=== PATIENT | female | born 1970 | race Caucasian/White ===

== ENCOUNTER 2017-12-03 10:44 | Outpatient (CLI) | payer OTHER | END 2017-12-03 10:45 | disposition home or self-care (01) | LOC: BICRAD 10:44 | PROVIDERS: ATTEND Family Medicine | DX: M23.91 Unspecified internal derangement of right knee (principal); M17.11 Unilateral primary osteoarthritis, right knee; M25.461 Effusion, right knee ==

== ENCOUNTER 2017-12-17 13:19 | Outpatient (CLI) | payer OTHER ==
--- NOTE | 2017-12-17 16:03 | MRI ---
MRI OF THE RIGHT KNEE WITHOUT CONTRAST: INDICATION: Internal derangement of the right knee. COMPARISON: None. 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 There are full-thi ckness chondral fissures involving the median patellar ridge as well as the central femoral trochlea with subchondral edema. There is diffuse chondral thinning involving the medial femoral tibial joint compartment. There is a large focal area of near full-thickness delamination involving the medial f emoral condyle measuring 1.7 x 1.3 cm in AP and lateral dimensions, respectively. There is a small h orizontally oriented T2 hyperintensity involving the anterior junction and anterior body of the media l meniscus suspicious for medial meniscal tear. The lateral meniscus is intact. The ACL, PCL, MCL, and LCLC are intact. There is some mild edema ov erlying the MCL which is nonspecific. LCLC, PCL, ACL, and extensor mechanism are intact. IMPRESSION: 1. 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 2. Medial meniscal tear. Lateral menisci appear intact. 3. Nonspecific edema overlying the medial collateral ligament can be related to a prior grade I medi al collateral ligament sprain. POS: [facility]
== END 2017-12-17 13:20 | disposition home or self-care (01) ==
LOC: SCSMRI 13:19
PROVIDERS: ATTEND Orthopaedic Surgery
DX: M25.561 Pain in right knee (principal); S83.241A Other tear of medial meniscus, current injury, right knee, initial encounter; R60.0 Localized edema